=== PATIENT | male | born 1960 | race Caucasian/White ===

== ENCOUNTER 2024-06-02 07:08 | Emergency (ER) | payer OTHER ==
[2024-06-02 07:55] LABS: BILIRUBIN,URINE SMALL (NEGATIVE); GLUCOSE, URINE (UA) NEGATIVE (NEGATIVE); KETONES,URINE (UA) 40 mg/dL (NEGATIVE); LEUKOCYTE ESTERASE, URINE MODERATE (NEGATIVE); NITRITE,URINE POSITIVE (NEGATIVE); OCCULT BLOOD,URINE SMALL (NEGATIVE); PROTEIN,URINE 30 mg/dL (NEGATIVE); UROBILINOGEN,URINE 0.2 (NORMAL) E.U./dL (NORMAL)
[2024-06-02 08:07] LABS: CLARITY,URINE HAZY (CLEAR)
--- NOTE | 2024-06-02 08:11 | ED Physician Documentation ---
PD HPI ABD PAIN - Stated complaint Stated Complaint: ,FEVER,SWEATS - Chief complaint Chief Complaint: Abd Pain - History obtained from History obtained from: Patient - History of Present Illness Timing - onset: How many days ago (3) Timing - duration: Days (3) Timing - details: Gradual onset, Still present Quality: Cramping, Aching, Other (suprapubic area/bladder with cramping at times. Mostly discomfort and frequency with urinating and some blood at times. Does not have feeling of blockage except briefly 2 days ago when could not urinate then suddenly was able with passage of small blob. He though might have been kidney stone.) PD PAST MEDICAL HISTORY - Past Medical History Past Medical History: Yes Cardiovascular: None Respiratory: None Neuro: None Endocrine/Autoimmune: None GI: None : Other HEENT: None Psych: None Musculoskeletal: None Derm: None - Past Surgical History Past Surgical History: Yes Ortho: Shoulder arthroplasty, Other - Present Medications Home Medications: Ambulatory Orders Medication Instructions Recorded Confirmed Phenazopyridine HCl [Pyridium] 100 mg PO TID PRN #15 tablet 06/02/24 Sulfamethox/Trimeth 800/160 1 each PO BID #14 tablet 06/02/24 [Bactrim Ds 800/160] Tadalafil [Cialis] 20 mg PO DAILY 06/02/24 06/02/24 - Allergies Allergies/Adverse Reactions: Allergies Allergy/AdvReac Type Severity Reaction Status Date / Time No Known Drug Allergies Allergy Verified 06/02/24 07:32 - Social History Does the pt smoke?: No Smoking Status: Never smoker Does the pt drink ETOH?: Yes Does the pt have substance abuse?: No - Immunizations Immunizations are current?: Yes - POLST Patient has POLST: No Results - Vitals Vitals: Oxygen O2 Source Room air - Labs Labs: Microbiology 06/02/24 07:45 Urine Culture - Preliminary Urine,Random Escherichia Coli Laboratory Tests 06/02/24 07:45 Urine Color DARK YELLOW Urine Clarity HAZY Urine pH 6.0 Ur Specific [place] 1.025 Urine Protein 30 H Urine Glucose (UA) NEGATIVE Urine Ketones 40 H Urine Occult Blood SMALL H Urine Nitrite POSITIVE H Urine Bilirubin SMALL H Urine Urobilinogen 0.2 (NORMAL) Ur Leukocyte Esterase MODERATE H Urine RBC 0-5 Urine WBC >25 H Urine WBC Clumps PRESENT Ur Squamous Epith Cells NONE SEEN Urine Bacteria Moderate H Ur Microscopic Review INDICATED Urine Culture Comments INDICATED PD Medical Decision Making - ED course Complexity details: reviewed results (UA c/w UTI. Bladder scan with small residual. ), considered differential (few days of dysuria and blood in urine most c/w UTI. He felt he may have passed a stone when could not urinate briefly then small blob out and could pass urine. Sounds more like sediment or clot from UTI with brief outflow blockage. Does not describe kidney stone symptoms per se. ), d/w patient Departure - Departure Disposition: Home, Self Care Clinical Impression: Dysuria, UTI (urinary tract infection) Condition: Stable Record reviewed to determine appropriate education?: Yes Instructions: ED UTI Cystitis Male Follow-Up: Minerva Pro MD [Primary Care Provider] - Prescriptions: Sulfamethox/Trimeth 800/160 [Bactrim Ds 800/160] 1 each PO BID #14 tablet Phenazopyridine HCl [Pyridium] 100 mg PO TID PRN #15 tablet PRN Reason: Abdominal Pain Comments: This sounds less likely that you have passed a kidney stone and more consistent with bladder infection. There may have been some partial blockage from blood or sediment from the infection that unclogged and allowed for improved feeling the other day. Your urine sample is very consistent with a urinary tract/bladder infection. This sounds like the majority of your symptoms. We can improve this with the trimethoprim sulfa antibiotic twice daily for a week. Short-term, stay hydrated of course and you can use phenazopyridine 3 times daily to help with the urinary discomfort. Add Tylenol every 4-6 hours if needed for pains as well. I would anticipate improvement over the next 2 to 3 days and resolution by 3 to 5 days. We will do a urine culture on your urine sample. This will result in a couple of days. Will call you if we need to change or amend the antibiotic choice based on that. I sent your prescriptions to your preferred [facility] pharmacy. Forms: PCP List Discharge Date/Time: 06/02/24 09:17
[2024-06-02 08:17] LABS: BACTERIA,URINE Moderate /HPF (None Seen); RBC,URINE 0-5 /HPF (0-5); SQUAMOUS EPITHELIAL CELL,UR NONE SEEN (<= Few); WBC CLUMPS,URINE PRESENT; WBC,URINE >25 /HPF (0-3)
[2024-06-02] MEDS: SULFAMETH/TRIMETH DS 800/160 MG TABLET PO STA (09:00)
[2024-06-02] MEDS: PHENAZOPYRIDINE 100 MG TABLET PO STA (09:00)
[2024-06-02 09:14] VITALS: BP 134/87; O2SAT 96
--- NOTE | 2024-06-04 12:47 | ED Physician Documentation ---
ED Addendum - Addendum Addendum: 06/04/24 12:47 . Urine culture reviewed, E. coli that was resistant to ampicillin and Bactrim. Bactrim is what he was put on. Will substitute given complex mental status to Cipro 250 p.o. twice daily for 7 days #14 sent to [facility] and called and discussed with patient. He has improved somewhat but has not resolved.
== END 2024-06-02 09:17 | disposition home or self-care (01) ==
LOC: ED 07:08
DX: N39.0 Urinary tract infection, site not specified (principal); B96.20 Unspecified Escherichia coli [E. coli] as the cause of diseases classified elsewhere
CPT/HCPCS: 51798; 81001; 87086; 87181; 99283; A9270; 81003